=== PATIENT | female | born 1940 | race Caucasian/White ===

== ENCOUNTER 2022-01-08 12:18 | Inpatient (IN) | payer MEDICARE ==
[~2022-01-08] VITALS: Ht 157.5 cm; Wt 80.3 kg
[2022-01-08] MEDS: ACETAMINOPHEN 500MG TABLET PO NR ×2 (15:23→16:40)
[2022-01-08 15:55] LABS: HEMATOCRIT. 33.7 % (36.0-48.0); HEMOGLOBIN. 11.1 g/dL (12.0-16.0); MEAN CORPUSCULAR HEMOGLOBIN 28.5 pg (28.0-32.0); MEAN CORPUSCULAR VOLUME 86.4 fL (81.0-99.0); MEAN PLATELET VOLUME 10.3 fl (7.4-10.4); RED CELL DISTRIBUTION WIDTH 14.3 % (11.6-14.6)
[2022-01-08 16:02] LABS: CHLORIDE 82 mEq/L (98-107)
[2022-01-08] MEDS ORDERED: SODIUM CHLORIDE 0.9% 1,000 ML IV ONE ×2 (16:45→22:30)
[2022-01-08 16:47] LABS: CLARITY URINE CLOUDY (CLEAR); COLOR URINE DARK YELLOW (YELLOW); KETONES URINE NEGATIVE (NEGATIVE); LEUKOCYTE ESTERASE URINE 1+ (NEGATIVE); NITRITE URINE POSITIVE (NEGATIVE); OCCULT BLOOD URINE 2+ (NEGATIVE); PH URINE 5.5 (4.5-8.0); PROTEIN URINE 2+ (NEGATIVE); SPECIFIC GRAVITY URINE 1.019 (1.005-1.030); UROBILINOGEN URINE 0.2 E.U./dL (0.2-1.0)
[2022-01-08] MEDS ORDERED: CEFTRIAXONE 1 G PREMIX 50 ML IV NR (17:00)
[2022-01-08] MEDS ORDERED: ASPIRIN 325MG EC TABLET PO NR (17:00)
[2022-01-08] MEDS ORDERED: INSULIN LISPRO 100 UNITS/ML SUBCUT NR (17:00)
[2022-01-08 17:03] LABS: PLATELET ESTIMATE DECREASED
[2022-01-08 17:04] LABS: PLATELET 50 x1000/uL (130-400)
[2022-01-08] MEDS ORDERED: ONDANSETRON HCL 4MG/2ML INJ IV PRN (18:30)
[2022-01-08] MEDS ORDERED: PIPERACILLIN/TAZ 3.375G PREMIX 50 ML IV NR (18:30)
[2022-01-08] MEDS ORDERED: CLONIDINE 0.1MG TABLET PO PRN (18:30)
[2022-01-08] MEDS ORDERED: IPRATROPIUM/ALBUTEROL 0.5-3(2.5)MG/3ML NEB NEB PRN (18:30)
[2022-01-08] MEDS ORDERED: SODIUM CHLORIDE 0.9% 1000ML BAG (SEPSIS BOLUS) IV NR (18:30)
[2022-01-08] MEDS ORDERED: NITROGLYCERIN 0.4MG TABLET SL SL PRN (18:30)
[2022-01-08] MEDS ORDERED: ZOLPIDEM TARTRATE 5MG TABLET PO PRN (18:30)
[2022-01-08] MEDS ORDERED: DOCUSATE SODIUM 100MG CAPSULE PO PRN (18:30)
[2022-01-08] MEDS ORDERED: ACETAMINOPHEN 325MG TABLET PO PRN ×2 (18:30)
[2022-01-08] MEDS ORDERED: MAGNESIUM/ALUMINUM HYDROXIDE/SIMETHICONE 30ML UDC PO PRN (18:30)
[2022-01-08] MEDS ORDERED: GUAIFENESIN 200MG/10ML SUGAR FREE UDC PO PRN (18:30)
[2022-01-08] MEDS ORDERED: DEXTROSE 50% WATER 50ML SYRINGE IV PRN (18:30)
[2022-01-08] MEDS: SODIUM CHLORIDE 0.9% 1,000 ML IV SCH (18:45)
[2022-01-08 19:16] LABS: T4 FREE 1.54 ng/dL (0.76-1.46)
[2022-01-08 19:43] LABS: VITAMIN B12 SERUM >2000 pg/mL pg/mL (211-911)
[2022-01-08] MEDS ORDERED: GLIP10TA10 MT (20:51)
[2022-01-08] MEDS ORDERED: ATOR40TA70 MT (20:58)
[2022-01-08] MEDS ORDERED: HYDR12.54 MT (20:58)
[2022-01-08] MEDS ORDERED: LOSA100T32 MT (20:58)
[2022-01-08] MEDS ORDERED: METF-874 MT (20:58)
[2022-01-08] MEDS: INSULIN LISPRO 100 UNITS/ML SUBCUT SCH (21:00)
[2022-01-08] MEDS: ASCORBIC ACID 500 MG TABLET PO SCH (21:00)
[2022-01-08] MEDS: BLOOD SUGAR DIAGNOSTIC STRIP TEST SCH (21:00)
[2022-01-08] MEDS: VANCOMYCIN 1500MG in DEXTROSE 5% WATER 250ML IV NR ×2 (21:00→23:03)
[2022-01-08] MEDS: INSULIN GLARGINE 100 UNITS/ML SUBCUT SCH (23:03)
[2022-01-08 23:25] LABS: CREATINE KINASE 29 IU/L (26-192); CREATINE KINASE MB FRACTION < 1.0 ng/mL (0.5-3.6)
[2022-01-09] VITALS (7 sets, daily range): BP systolic 103–120; BP diastolic 49–70
[2022-01-09] MEDS ORDERED: NOREPINEPHRINE 8MG/250ML PMX 250 ML IV ONE (00:28)
[2022-01-09] MEDS ORDERED: INFLUENZA VACCINE 05/PF 0.5 ML SYRINGE IM ONE (04:15)
[2022-01-09] MEDS: SODIUM CHLORIDE 0.9% 1,000 ML IV SCH ×2 (05:04→21:30)
[2022-01-09] MEDS ORDERED: PIPERACILLIN/TAZOBACTAM 3.375G in DEXT 5% WATER 50ML IV SCH ×4 (06:00)
[2022-01-09] MEDS: BLOOD SUGAR DIAGNOSTIC STRIP TEST SCH ×4 (07:20→21:23)
[2022-01-09] MEDS ORDERED: ASPIRIN 325MG EC TABLET PO SCH (09:00)
[2022-01-09] MEDS: FAMOTIDINE 20MG TABLET PO SCH (09:15)
[2022-01-09] MEDS: CHOLECALCIFEROL (D3) 1000 UNIT TABLET PO SCH (09:15)
[2022-01-09] MEDS: ASCORBIC ACID 500 MG TABLET PO SCH ×2 (09:15→21:22)
[2022-01-09] MEDS: ZINC SULFATE 220 MG ( 50 ) CAPSULE PO SCH (09:16)
[2022-01-09] MEDS: INSULIN LISPRO 100 UNITS/ML SUBCUT SCH ×7 (09:18→21:00)
[2022-01-09 10:35] LABS: BG BASE EXCESS -1.8 mmol/L (-2.0-2.0); BG CARBOXYHEMOGLOBIN 0.3 % (0.5-1.5); BG DEOXYHEMOGLOBIN 5.1 % (0.0-5.0); BG FRACTION INSPIRED OXYGEN 36; BG HCO3 ACT 21.9 mmol/L (22.0-26.0); BG METHEMOGLOBIN 0.3 % (0.0-1.5); BG OXYGEN SATURATION 94.9 % (92.0-98.5); BG OXYHEMOGLOBIN 94.3 % (94.0-97.0); BG PCO2 33.2 mmHg (35.0-45.0); BG PH 7.437 (7.350-7.450); BG PO2 72.5 mmHg (75.0-100.0); BG SAMPLE SITE RIGHT RADIAL; BG TOTAL HEMOGLOBIN 10.5 g/dL (12.0-18.0); BG VENT MODE NASAL CANNULA
[2022-01-09] MEDS: MEROPENEM 500MG in NORMAL SALINE 50ML IV SCH (17:11)
[2022-01-09 17:32] LABS: CHLORIDE 100 mEq/L (98-107)
[2022-01-09 17:35] LABS: CREATINE KINASE 20 IU/L (26-192); CREATINE KINASE MB FRACTION < 1.0 ng/mL (0.5-3.6)
[2022-01-09 18:01] LABS: PHOSPHORUS 0.1 mg/dL (2.5-4.9)
[2022-01-09 19:30] LABS: HEMATOCRIT. 28.5 % (36.0-48.0); HEMOGLOBIN. 9.5 g/dL (12.0-16.0); MEAN CORPUSCULAR HEMOGLOBIN 27.9 pg (28.0-32.0); MEAN CORPUSCULAR VOLUME 83.5 fL (81.0-99.0); MEAN PLATELET VOLUME 9.8 fl (7.4-10.4); RED BLOOD CELL COUNT 3.41 mill/uL (4.2-5.4)
[2022-01-09] MEDS ORDERED: POTASSIUM CHLORIDE 20MEQ TABLET SR PO NR (19:30)
[2022-01-09 19:50] LABS: PLATELET 8 x1000/uL (130-400)
[2022-01-09] MEDS ORDERED: POTASSIUM PHOS,M-BASIC-D-BASIC 30 MMOL in DEXT 5% WATER 500 ML IV ONE (21:00)
[2022-01-09 21:02] LABS: PLATELET ESTIMATE MARKEDLY DECREASED
[2022-01-09] MEDS: INSULIN GLARGINE 100 UNITS/ML SUBCUT SCH (21:23)
[2022-01-09 23:42] LABS: D-DIMER 8.47 mg/L FEU (<0.50); INR 1.1; PROTHROMBIN TIME 11.4 sec (9.6-11.0)
[2022-01-10] VITALS: BP 100/62
[2022-01-10 04:00] VITALS: BP 116/64
[2022-01-10] MEDS: BLOOD SUGAR DIAGNOSTIC STRIP TEST SCH ×4 (06:55→20:51)
[2022-01-10] MEDS: MEROPENEM 500MG in NORMAL SALINE 50ML IV SCH ×2 (06:55→18:09)
[2022-01-10] MEDS: INSULIN LISPRO 100 UNITS/ML SUBCUT SCH ×7 (07:20→20:51)
[2022-01-10 08:00] VITALS: BP 115/73
[2022-01-10 08:43] LABS: HEMATOCRIT. 27.7 % (36.0-48.0); HEMOGLOBIN. 9.3 g/dL (12.0-16.0); MEAN CORPUSCULAR HEMOGLOBIN 28.2 pg (28.0-32.0); MEAN CORPUSCULAR VOLUME 83.4 fL (81.0-99.0); MEAN PLATELET VOLUME 9.9 fl (7.4-10.4); RED BLOOD CELL COUNT 3.32 mill/uL (4.2-5.4); RED CELL DISTRIBUTION WIDTH 14.5 % (11.6-14.6)
[2022-01-10 08:49] LABS: PLATELET 9 x1000/uL (130-400)
[2022-01-10 09:13] LABS: CHLORIDE 101 mEq/L (98-107)
[2022-01-10 09:23] LABS: PHOSPHORUS 2.7 mg/dL (2.5-4.9)
[2022-01-10] MEDS: ZINC SULFATE 220 MG ( 50 ) CAPSULE PO SCH (09:27)
[2022-01-10] MEDS: CHOLECALCIFEROL (D3) 1000 UNIT TABLET PO SCH (09:27)
[2022-01-10] MEDS: ASCORBIC ACID 500 MG TABLET PO SCH ×2 (09:27→21:48)
[2022-01-10] MEDS: FAMOTIDINE 20MG TABLET PO SCH (09:27)
[2022-01-10 09:41] LABS: NUCLEATED RED BLOOD CELLS 1 /100 WBC
[2022-01-10 09:42] LABS: PLATELET ESTIMATE MARKEDL
[2022-01-10] MEDS ORDERED: POTASSIUM CHLORIDE 20MEQ TABLET SR PO NR (10:45)
[2022-01-10 12:00] VITALS: BP 125/68
[2022-01-10] MEDS ORDERED: VANCOMYCIN 1GM PMX (XELLIA) 200 ML IV SCH (15:00)
[2022-01-10] MEDS: PREDNISONE 20MG TABLET PO SCH (15:15)
[2022-01-10 16:00] VITALS: BP 111/64
[2022-01-10] MEDS: SODIUM CHLORIDE 0.9% 1,000 ML IV SCH (18:15)
[2022-01-10 20:00] VITALS: BP 125/69
[2022-01-10] MEDS: INSULIN GLARGINE 100 UNITS/ML SUBCUT SCH (21:49)
[2022-01-11] VITALS: BP 122/67
[2022-01-11] MEDS: SODIUM CHLORIDE 0.9% 1,000 ML IV SCH ×2 (00:05→13:48)
[2022-01-11 04:00] VITALS: BP 130/61
[2022-01-11] MEDS: MEROPENEM 500MG in NORMAL SALINE 50ML IV SCH ×2 (05:05→18:54)
[2022-01-11] MEDS: BLOOD SUGAR DIAGNOSTIC STRIP TEST SCH ×4 (06:20→21:24)
[2022-01-11 08:21] VITALS: BP 122/65
[2022-01-11] MEDS: ASCORBIC ACID 500 MG TABLET PO SCH ×2 (09:12→21:24)
[2022-01-11] MEDS: CHOLECALCIFEROL (D3) 1000 UNIT TABLET PO SCH (09:12)
[2022-01-11] MEDS: FAMOTIDINE 20MG TABLET PO SCH (09:12)
[2022-01-11] MEDS: ZINC SULFATE 220 MG ( 50 ) CAPSULE PO SCH (09:12)
[2022-01-11] MEDS: PREDNISONE 20MG TABLET PO SCH (09:12)
[2022-01-11] MEDS: INSULIN LISPRO 100 UNITS/ML SUBCUT SCH ×7 (09:14→21:00)
[2022-01-11 12:00] VITALS: BP 126/65
[2022-01-11 16:00] VITALS: BP 123/75
[2022-01-11 19:52] VITALS: BP 116/63
[2022-01-11] MEDS: INSULIN GLARGINE 100 UNITS/ML SUBCUT SCH (21:25)
[2022-01-12] VITALS: BP 109/72
[2022-01-12] MEDS: SODIUM CHLORIDE 0.9% 1,000 ML IV SCH ×2 (02:27→17:28)
[2022-01-12 04:00] VITALS: BP 115/69
[2022-01-12] MEDS: MEROPENEM 500MG in NORMAL SALINE 50ML IV SCH (05:37)
[2022-01-12] MEDS: BLOOD SUGAR DIAGNOSTIC STRIP TEST SCH ×4 (06:13→21:00)
[2022-01-12 08:00] VITALS: BP 139/76
[2022-01-12] MEDS: ASCORBIC ACID 500 MG TABLET PO SCH ×2 (09:30→22:02)
[2022-01-12] MEDS: CHOLECALCIFEROL (D3) 1000 UNIT TABLET PO SCH (09:30)
[2022-01-12] MEDS: ZINC SULFATE 220 MG ( 50 ) CAPSULE PO SCH (09:31)
[2022-01-12] MEDS: PREDNISONE 20MG TABLET PO SCH (09:31)
[2022-01-12] MEDS: FAMOTIDINE 20MG TABLET PO SCH (09:31)
[2022-01-12] MEDS: INSULIN LISPRO 100 UNITS/ML SUBCUT SCH ×7 (09:35→21:00)
[2022-01-12 12:00] VITALS: BP 142/79
[2022-01-12] MEDS ORDERED: VANCOMYCIN 750MG PREMIX 150 ML IV SCH (15:00)
[2022-01-12 16:00] VITALS: BP 133/71
[2022-01-12] MEDS: CEFEPIME 1,000 MG in DEXTROSE 5% WATER 50 ML IV SCH (17:27)
[2022-01-12] MEDS: METRONIDAZOLE 500MG TABLET PO SCH ×2 (17:27→22:02)
[2022-01-12 20:00] VITALS: BP 138/80
[2022-01-12] MEDS: INSULIN GLARGINE 100 UNITS/ML SUBCUT SCH (22:02)
[2022-01-13] VITALS: BP 139/81
[2022-01-13 04:00] VITALS: BP 135/79
[2022-01-13] MEDS: SODIUM CHLORIDE 0.9% 1,000 ML IV SCH ×2 (05:34→18:45)
[2022-01-13] MEDS: CEFEPIME 1,000 MG in DEXTROSE 5% WATER 50 ML IV SCH ×2 (05:34→18:00)
[2022-01-13] MEDS: BLOOD SUGAR DIAGNOSTIC STRIP TEST SCH ×4 (06:45→21:29)
[2022-01-13] MEDS: INSULIN LISPRO 100 UNITS/ML SUBCUT SCH ×7 (06:45→21:00)
[2022-01-13 08:00] VITALS: BP 117/53
[2022-01-13] MEDS: ASCORBIC ACID 500 MG TABLET PO SCH ×2 (08:34→20:59)
[2022-01-13] MEDS: FAMOTIDINE 20MG TABLET PO SCH (08:34)
[2022-01-13] MEDS: PREDNISONE 20MG TABLET PO SCH (08:35)
[2022-01-13] MEDS: ZINC SULFATE 220 MG ( 50 ) CAPSULE PO SCH (08:35)
[2022-01-13] MEDS: CHOLECALCIFEROL (D3) 1000 UNIT TABLET PO SCH (08:35)
[2022-01-13] MEDS: METRONIDAZOLE 500MG TABLET PO SCH ×2 (08:35→21:29)
[2022-01-13 09:50] LABS: HEMATOCRIT. 32.7 % (36.0-48.0); HEMOGLOBIN. 10.9 g/dL (12.0-16.0); MEAN CORPUSCULAR VOLUME 84.2 fL (81.0-99.0); MEAN PLATELET VOLUME 10.4 fl (7.4-10.4); PLATELET 71 x1000/uL (130-400); RED BLOOD CELL COUNT 3.89 mill/uL (4.2-5.4); RED CELL DISTRIBUTION WIDTH 15.1 % (11.6-14.6)
[2022-01-13 12:00] VITALS: BP 100/76
[2022-01-13 16:00] VITALS: BP 142/93
[2022-01-13 20:00] VITALS: BP 126/57
[2022-01-13] MEDS: INSULIN GLARGINE 100 UNITS/ML SUBCUT SCH (21:01)
[2022-01-13 22:15] LABS: PLATELET ESTIMATE DECREASED
[2022-01-14] VITALS: BP 105/60
[2022-01-14 04:00] VITALS: BP 109/85
[2022-01-14] MEDS: CEFEPIME 1,000 MG in DEXTROSE 5% WATER 50 ML IV SCH ×2 (06:00→18:36)
[2022-01-14] MEDS: BLOOD SUGAR DIAGNOSTIC STRIP TEST SCH ×4 (06:40→21:00)
[2022-01-14] MEDS: INSULIN LISPRO 100 UNITS/ML SUBCUT SCH ×7 (06:41→22:23)
[2022-01-14 07:58] VITALS: BP 144/63
[2022-01-14 08:18] LABS: HEMATOCRIT. 29.5 % (36.0-48.0); MEAN CORPUSCULAR HEMOGLOBIN 28.3 pg (28.0-32.0); MEAN CORPUSCULAR VOLUME 83.5 fL (81.0-99.0); MEAN PLATELET VOLUME 9.9 fl (7.4-10.4); PLATELET 110 x1000/uL (130-400); RED BLOOD CELL COUNT 3.54 mill/uL (4.2-5.4); RED CELL DISTRIBUTION WIDTH 15.1 % (11.6-14.6)
[2022-01-14] MEDS ORDERED: LIDOCAINE HCL 1% 30ML VIAL (10MG/ML) ONE (08:29)
[2022-01-14] MEDS: FAMOTIDINE 20MG TABLET PO SCH (09:49)
[2022-01-14] MEDS: CHOLECALCIFEROL (D3) 1000 UNIT TABLET PO SCH (09:49)
[2022-01-14] MEDS: METRONIDAZOLE 500MG TABLET PO SCH ×2 (09:50→22:24)
[2022-01-14] MEDS: ZINC SULFATE 220 MG ( 50 ) CAPSULE PO SCH (09:50)
[2022-01-14] MEDS: ASCORBIC ACID 500 MG TABLET PO SCH ×2 (09:50→22:21)
[2022-01-14] MEDS: PREDNISONE 20MG TABLET PO SCH (09:50)
[2022-01-14 12:00] VITALS: BP 141/70
[2022-01-14] MEDS: SODIUM CHLORIDE 0.9% 1,000 ML IV SCH ×2 (12:36→21:25)
[2022-01-14 14:29] LABS: PLATELET ESTIMATE SLIGHTLY DECREASED
[2022-01-14 16:00] VITALS: BP 153/82
[2022-01-14] MEDS: INSULIN GLARGINE 100 UNITS/ML SUBCUT SCH (22:23)
[2022-01-15] MEDS: CEFEPIME 1,000 MG in DEXTROSE 5% WATER 50 ML IV SCH ×2 (06:00→18:10)
[2022-01-15] MEDS: BLOOD SUGAR DIAGNOSTIC STRIP TEST SCH ×3 (07:20→18:13)
[2022-01-15] MEDS: INSULIN LISPRO 100 UNITS/ML SUBCUT SCH ×6 (07:20→17:50)
[2022-01-15 08:00] VITALS: BP 145/85
[2022-01-15] MEDS: METRONIDAZOLE 500MG TABLET PO SCH (09:00)
[2022-01-15] MEDS: ZINC SULFATE 220 MG ( 50 ) CAPSULE PO SCH (09:26)
[2022-01-15] MEDS: PREDNISONE 20MG TABLET PO SCH (09:26)
[2022-01-15] MEDS: ASCORBIC ACID 500 MG TABLET PO SCH (09:27)
[2022-01-15] MEDS: FAMOTIDINE 20MG TABLET PO SCH (09:27)
[2022-01-15] MEDS: CHOLECALCIFEROL (D3) 1000 UNIT TABLET PO SCH (09:27)
[2022-01-15] MEDS: SODIUM CHLORIDE 0.9% 1,000 ML IV SCH (09:27)
[2022-01-15] MEDS ORDERED: METR-167 PO (11:35)
[2022-01-15] MEDS ORDERED: INSLIS SUBCUT (11:35)
[2022-01-15] MEDS ORDERED: ZINC220C2 PO (11:35)
[2022-01-15] MEDS ORDERED: LANTUSUD SUBCUT (11:35)
[2022-01-15] MEDS ORDERED: ASCO500T20 PO (11:35)
[2022-01-15 12:00] VITALS: BP 145/85
[2022-01-15 16:00] VITALS: BP 145/85
[2022-01-15 16:42] VITALS: BP 112/78
== END 2022-01-15 19:45 | disposition home health service (06) | DRG 871 ==
LOC: EDSEX 12:18 → ER 14:56 → MICUSO 17:55 → EDBEDREQ 18:06 → SUPCPDRO 18:28 → ENRESERV 20:39 → 6WST 01-09 02:14
PROVIDERS: ADMIT Internal Medicine; ATTEND Internal Medicine
PROC: 05HY33Z Insertion of Infusion Device into Upper Vein, Percutaneous Approach (ICD-10-PCS; principal; 2022-01-14)
PROC: B54MZZA Ultrasonography of Right Upper Extremity Veins, Guidance (ICD-10-PCS; 2022-01-14)
PROC: B51MZZA Fluoroscopy of Right Upper Extremity Veins, Guidance (ICD-10-PCS; 2022-01-14)
DX: A41.51 Sepsis due to Escherichia coli [E. coli] (principal); E11.00 Type 2 diabetes mellitus with hyperosmolarity without nonketotic hyperglycemic-hyperosmolar coma (NKHHC); E43 Unspecified severe protein-calorie malnutrition; G93.41 Metabolic encephalopathy; K85.90 Acute pancreatitis without necrosis or infection, unspecified; I21.4 Non-ST elevation (NSTEMI) myocardial infarction; E87.1 Hypo-osmolality and hyponatremia; N39.0 Urinary tract infection, site not specified; N17.9 Acute kidney failure, unspecified; J98.11 Atelectasis; K57.32 Diverticulitis of large intestine without perforation or abscess without bleeding; D69.3 Immune thrombocytopenic purpura; A41.59 Other Gram-negative sepsis; D69.6 Thrombocytopenia, unspecified; D64.9 Anemia, unspecified; I27.20 Pulmonary hypertension, unspecified; I10 Essential (primary) hypertension; I07.1 Rheumatic tricuspid insufficiency; E87.8 Other disorders of electrolyte and fluid balance, not elsewhere classified; R74.01 Elevation of levels of liver transaminase levels; E86.0 Dehydration; K02.9 Dental caries, unspecified; Z20.822 Contact with and (suspected) exposure to COVID-19; E66.9 Obesity, unspecified; E78.1 Pure hyperglyceridemia; K83.8 Other specified diseases of biliary tract; E78.5 Hyperlipidemia, unspecified; S00.212A Abrasion of left eyelid and periocular area, initial encounter; W18.39XA Other fall on same level, initial encounter; Y93.89 Activity, other specified; Y92.098 Other place in other non-institutional residence as the place of occurrence of the external cause; Y99.8 Other external cause status; Z87.440 Personal history of urinary (tract) infections; Z90.49 Acquired absence of other specified parts of digestive tract; Z68.32 Body mass index [BMI] 32.0-32.9, adult; Z79.899 Other long term (current) drug therapy
CPT/HCPCS: 36415; 36573; 36600; 71045; 74176; 76700; 80048; 80053; 80061; 80076; 80202; 81003; 82375; 82550; 82553; 82607; 82746; 82805; 82962; 83036; 83540; 83550; 83605; 83735; 83880; 83930; 84100; 84439; 84443; 84484; 85025; 85049; 85379; 85384; 86850; 86900; 87077; 87186; 87426; 93005; 93306; 93970; 97116; 97162; 97166; 99291; A6261; C1725; C1769; J0692; J0696; J1815; J2185; J2405; J2543; J3370; J3490; J7060; J7512

== ENCOUNTER 2022-01-18 02:36 | Inpatient (IN) | payer MEDICARE ==
[~2022-01-18] VITALS: Ht 157.5 cm; Wt 80.7 kg
[~2022-01-18 02:36] MED LIST: ASCO500T20 PO; ATOR40TA70 MT; HYDR12.54 MT; INSLIS SUBCUT; LANTUSUD SUBCUT; LOSA100T32 MT; METF-874 MT; METR-167 PO; ZINC220C2 PO
[2022-01-18] MEDS ORDERED: DEXT 5%/LACTATED RINGERS 1,000 ML IV ONE (03:15)
[2022-01-18 03:55] LABS: HEMATOCRIT. 32.1 % (36.0-48.0); HEMOGLOBIN. 10.5 g/dL (12.0-16.0); MEAN CORPUSCULAR HEMOGLOBIN 27.9 pg (28.0-32.0); MEAN CORPUSCULAR VOLUME 85.8 fL (81.0-99.0); MEAN PLATELET VOLUME 8.4 fl (7.4-10.4); PLATELET 268 x1000/uL (130-400); RED BLOOD CELL COUNT 3.74 mill/uL (4.2-5.4); RED CELL DISTRIBUTION WIDTH 15.7 % (11.6-14.6)
[2022-01-18 04:02] LABS: CHLORIDE 107 mEq/L (98-107)
[2022-01-18 04:14] LABS: PLATELET ESTIMATE NORMAL
[2022-01-18] MEDS ORDERED: CEFTRIAXONE 1 G PREMIX 50 ML IV NR (04:15)
[2022-01-18] MEDS ORDERED: CEFEPIME 2,000 MG in DEXT 5% WATER 100 ML IV NR (05:45)
[2022-01-18 08:25] LABS: CLARITY URINE CLEAR (CLEAR); COLOR URINE PALE YELLOW (YELLOW); KETONES URINE NEGATIVE (NEGATIVE); LEUKOCYTE ESTERASE URINE TRACE (NEGATIVE); NITRITE URINE NEGATIVE (NEGATIVE); OCCULT BLOOD URINE TRACE (NEGATIVE); PROTEIN URINE TRACE (NEGATIVE); UROBILINOGEN URINE 0.2 E.U./dL (0.2-1.0)
[2022-01-18 08:30] VITALS: BP 164/87
[2022-01-18] MEDS ORDERED: GLIP10TA10 MT (09:43)
[2022-01-18] MEDS ORDERED: ACETAMINOPHEN 325MG TABLET PO PRN ×2 (10:15)
[2022-01-18] MEDS ORDERED: MAGNESIUM/ALUMINUM HYDROXIDE/SIMETHICONE 30ML UDC PO PRN (10:15)
[2022-01-18] MEDS ORDERED: DEXTROSE 50% WATER 50ML SYRINGE IV PRN (10:15)
[2022-01-18] MEDS ORDERED: DIPHENHYDRAMINE 50MG/ML VIAL IV PRN (10:15)
[2022-01-18] MEDS ORDERED: DOCUSATE SODIUM 100MG CAPSULE PO PRN (10:15)
[2022-01-18] MEDS ORDERED: ONDANSETRON HCL 4MG/2ML INJ IV PRN (10:15)
[2022-01-18] MEDS ORDERED: CLONIDINE 0.1MG TABLET PO PRN (10:15)
[2022-01-18] MEDS: METRONIDAZOLE 500MG TABLET PO SCH ×2 (11:03→22:06)
[2022-01-18 12:00] VITALS: BP_SYST 140; BP_SYST 155; BP_DIAS 73; BP_DIAS 89
[2022-01-18] MEDS: INSULIN LISPRO 100 UNITS/ML SUBCUT SCH ×3 (12:50→21:00)
[2022-01-18] MEDS: BLOOD SUGAR DIAGNOSTIC STRIP TEST SCH ×3 (12:54→21:35)
[2022-01-18] MEDS: SODIUM CHLORIDE 0.9% INJ 3ML FLUSH IVF SCH ×2 (14:22→22:08)
[2022-01-18] MEDS: METFORMIN HCL 500MG TABLET PO SCH (18:23)
[2022-01-18] MEDS: LOSARTAN POTASSIUM 100 MG TABLET PO SCH (18:23)
[2022-01-18 20:00] VITALS: BP 145/71
[2022-01-18] MEDS ORDERED: ZOLPIDEM TARTRATE 5MG TABLET PO PRN (21:00)
[2022-01-18] MEDS: CEFEPIME 1,000 MG in DEXTROSE 5% WATER 50 ML IV SCH (22:05)
[2022-01-19] VITALS: BP 141/70
[2022-01-19 04:00] VITALS: BP 138/76
[2022-01-19] MEDS: SODIUM CHLORIDE 0.9% INJ 3ML FLUSH IVF SCH ×3 (06:43→22:31)
[2022-01-19] MEDS: BLOOD SUGAR DIAGNOSTIC STRIP TEST SCH ×4 (07:20→22:00)
[2022-01-19 07:23] LABS: BASOPHILS % 0.6 % (0.0-2.0); EOSINOPHILS % 1.6 % (0.0-5.0); HEMATOCRIT. 24.3 % (36.0-48.0); HEMOGLOBIN. 8.3 g/dL (12.0-16.0); LYMPHOCYTES % 12.8 % (20.0-50.0); MEAN CORPUSCULAR VOLUME 85.5 fL (81.0-99.0); MEAN PLATELET VOLUME 8.2 fl (7.4-10.4); PLATELET 279 x1000/uL (130-400); RED BLOOD CELL COUNT 2.85 mill/uL (4.2-5.4); RED CELL DISTRIBUTION WIDTH 15.7 % (11.6-14.6)
[2022-01-19] MEDS: INSULIN LISPRO 100 UNITS/ML SUBCUT SCH ×4 (07:50→22:41)
[2022-01-19 08:00] VITALS: BP 160/74
[2022-01-19 08:20] LABS: CHLORIDE 105 mEq/L (98-107)
[2022-01-19 08:39] LABS: PHOSPHORUS 2.4 mg/dL (2.5-4.9)
[2022-01-19] MEDS: HYDROCHLOROTHIAZIDE 12.5MG CAPSULE PO SCH (09:00)
[2022-01-19] MEDS: METFORMIN HCL 500MG TABLET PO SCH ×2 (09:09→17:46)
[2022-01-19] MEDS: LOSARTAN POTASSIUM 100 MG TABLET PO SCH (09:09)
[2022-01-19] MEDS: CEFEPIME 1,000 MG in DEXTROSE 5% WATER 50 ML IV SCH ×2 (09:10→22:31)
[2022-01-19] MEDS: METRONIDAZOLE 500MG TABLET PO SCH ×2 (09:10→22:31)
[2022-01-19] MEDS ORDERED: MAGNESIUM 4 G PREMIX 100 ML IV NR (11:45)
[2022-01-19 12:00] VITALS: BP 151/77
[2022-01-19] MEDS: PANTOPRAZOLE SODIUM 40 MG/VIAL IV SCH (13:42)
[2022-01-19 16:00] VITALS: BP 145/79
[2022-01-19 20:00] VITALS: BP 147/58
[2022-01-20] VITALS: BP 137/69
[2022-01-20 04:00] VITALS: BP 156/80
[2022-01-20] MEDS: SODIUM CHLORIDE 0.9% INJ 3ML FLUSH IVF SCH ×2 (06:00→13:20)
[2022-01-20] MEDS: BLOOD SUGAR DIAGNOSTIC STRIP TEST SCH ×3 (07:39→18:16)
[2022-01-20 07:42] LABS: BASOPHILS % 0.9 % (0.0-2.0); EOSINOPHILS % 1.5 % (0.0-5.0); HEMATOCRIT. 25.4 % (36.0-48.0); HEMOGLOBIN. 8.6 g/dL (12.0-16.0); LYMPHOCYTES % 8.8 % (20.0-50.0); MEAN CORPUSCULAR VOLUME 85.6 fL (81.0-99.0); MEAN PLATELET VOLUME 8.2 fl (7.4-10.4); MONOCYTES % 6.1 % (2.0-8.0); NEUTROPHILS % 82.7 % (40.0-76.0); PLATELET 281 x1000/uL (130-400); RED BLOOD CELL COUNT 2.97 mill/uL (4.2-5.4); RED CELL DISTRIBUTION WIDTH 15.7 % (11.6-14.6)
[2022-01-20] MEDS: INSULIN LISPRO 100 UNITS/ML SUBCUT SCH ×3 (07:50→18:34)
[2022-01-20 08:00] VITALS: BP 141/72
[2022-01-20] MEDS: METFORMIN HCL 500MG TABLET PO SCH ×2 (08:33→18:22)
[2022-01-20] MEDS: LOSARTAN POTASSIUM 100 MG TABLET PO SCH (08:33)
[2022-01-20] MEDS: METRONIDAZOLE 500MG TABLET PO SCH (08:33)
[2022-01-20] MEDS: CEFEPIME 1,000 MG in DEXTROSE 5% WATER 50 ML IV SCH (08:34)
[2022-01-20] MEDS: HYDROCHLOROTHIAZIDE 12.5MG CAPSULE PO SCH (08:34)
[2022-01-20] MEDS: PANTOPRAZOLE SODIUM 40 MG/VIAL IV SCH (08:34)
[2022-01-20 09:11] LABS: CHLORIDE 103 mEq/L (98-107)
[2022-01-20 09:25] LABS: PHOSPHORUS 2.4 mg/dL (2.5-4.9)
[2022-01-20 12:00] VITALS: BP 144/68
[2022-01-20 16:00] VITALS: BP 131/63
[2022-01-20] MEDS ORDERED: METF-414 PO (21:09)
[2022-01-20 21:12] VITALS: BP 134/69
== END 2022-01-20 21:30 | disposition home health service (06) | DRG 637 ==
LOC: ER 02:58 → 6EST 05:23 → EDBEDREQTM 06:13 → EDBEDREQ 06:13 → ENRESERV 07:05 → 6EST 08:26
PROVIDERS: ADMIT Internal Medicine; ATTEND Internal Medicine
DX: E11.649 Type 2 diabetes mellitus with hypoglycemia without coma (principal); G93.41 Metabolic encephalopathy; R65.10 Systemic inflammatory response syndrome (SIRS) of non-infectious origin without acute organ dysfunction; R78.81 Bacteremia; E78.00 Pure hypercholesterolemia, unspecified; I10 Essential (primary) hypertension; E78.5 Hyperlipidemia, unspecified; Z90.49 Acquired absence of other specified parts of digestive tract; Z79.84 Long term (current) use of oral hypoglycemic drugs; Z79.899 Other long term (current) drug therapy
CPT/HCPCS: 36415; 71045; 80053; 81003; 82270; 82962; 83036; 83735; 84100; 85025; 99285; C9113; J0692; J1815; J3475; J7060; J7121